=== PATIENT | female | born 1975 | race Caucasian/White ===

== ENCOUNTER 2019-08-04 13:30 | Inpatient (IN) | payer BC, OTHER ==
[~2019-08-04] VITALS: Ht 167.6 cm; Wt 106.7 kg
[2019-08-04 14:07] LABS: BASOPHILS # (AUTO) 0.05 x10^3/uL (0-0.1); BASOPHILS % (AUTO) 0 % (0-1); EOSINOPHILS # (AUTO) 0.34 x10^3/uL (0-0.4); EOSINOPHILS % (AUTO) 2 % (1-7); LYMPHOCYTES # (AUTO) 3.12 x10^3/uL (1-3.4); LYMPHOCYTES % (AUTO) 22 % (22-44); MD NO; MEAN CORPUSCULAR HEMOGLOBIN 27.7 pg (27.0-34.8); MEAN CORPUSCULAR HGB CONC 33.2 g/dL (32.4-35.8); MEAN CORPUSCULAR VOLUME 83.5 fL (80-100); MEAN PLATELET VOLUME 6.9 fL (7.4-10.4); MONOCYTES # (AUTO) 0.84 x10^3/uL (0.2-0.8); MONOCYTES % (AUTO) 6 % (2-9); NEUTROPHILS # (AUTO) 9.95 x10^3/uL (1.8-6.8); NEUTROPHILS % (AUTO) 70 % (42-75); PLATELET COUNT 475 x10^3/uL (130-400); RED BLOOD COUNT 5.11 x10^6/uL (3.82-5.3)
[2019-08-04 14:15] LABS: ALANINE AMINOTRANSFERASE 58 U/L (12-78); ALBUMIN 4.1 g/dL (3.4-5.0); ANION GAP 4 mmol/L (5-15); CALCIUM 9.2 mg/dL (8.5-10.1); CHLORIDE 105 mmol/L (98-107); CREATININE 1.02 mg/dL (0.55-1.02)
[2019-08-04 14:19] LABS: ALKALINE PHOSPHATASE 96 U/L (45-117); BILIRUBIN,TOTAL 0.4 mg/dL (0.2-1.0); TOTAL PROTEIN 8.9 g/dL (6.4-8.2)
--- NOTE | 2019-08-04 16:33 | NUR ---
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 PT WITH FRIEND. NADN. THAKKAR. PT EDUCATED REGARDING WAITING IN LOBBY AT THIS TIME. PT VERBALIZED UNDERSTANDING.
--- NOTE | 2019-08-04 19:14 | NUR ---
PT WALKED TO ROOM FROM LOBBY AT THIS TIME
[2019-08-04] MEDS ORDERED: OMEP-110 PO (19:32)
--- NOTE | 2019-08-04 19:32 | NUR ---
PT C/O SHARP ALL OVER ABD PAIN, STARTING YESTERDAY ABOUT 1200. HX STOMACH PROBLEMS, RECENT CONSTIPATION. CONNECTED TO MONITORING. CALL LIGHT IN REACH. UA COLLECTED AND SENT TO LAB.
[2019-08-04 19:39] LABS: MICROSCOPIC NOT IND
[2019-08-04 19:40] LABS: CULTURE INDICATED? NO
[2019-08-04] MEDS ORDERED: OMNIPAQUE 350 MG/ML, 100ML BOTTLE ONE (20:20)
[2019-08-04] MEDS ORDERED: SODIUM CHLORIDE FLUSH 10ML SYR IVF ONE (20:30)
[2019-08-04] MEDS ORDERED: MORPHINE SULFATE 4 MG/ML, 1ML IVPush PRN (20:30)
[2019-08-04] MEDS ORDERED: ONDANSETRON 2MG/ML, 2ML IVPush ONE (20:30)
[2019-08-04] MEDS ORDERED: ONDANSETRON 2MG/ML, 2ML ONE ×2 (20:50→23:25)
[2019-08-04] MEDS ORDERED: MORPHINE SULFATE 4 MG/ML, 1ML ONE (20:51)
--- NOTE | 2019-08-04 21:18 | NUR ---
IV START. PAIN MEDS ADMIN PER AUG. DAUGHTER AT BEDSIDE.
--- NOTE | 2019-08-04 21:29 | NUR ---
PT AT CT
--- NOTE | 2019-08-04 22:10 | NUR ---
REPORT GIVEN TO OR
[2019-08-04] MEDS ORDERED: CEFOTETAN PMX 1GM/50ML 50 ML ONE (22:12)
--- NOTE | 2019-08-04 22:16 | NUR ---
ABX ADMIN PER MAR
[2019-08-04] MEDS ORDERED: BUPIVACAINE/PF 0.5% ONE (22:20)
[2019-08-04] MEDS ORDERED: EPINEPHRINE 1 MG/ML, 1ML ONE (22:20)
[2019-08-04] MEDS ORDERED: CEFOTETAN PMX 1GM/50ML 50 ML IV ONE (22:30)
[2019-08-04] MEDS ORDERED: BUPIVACAINE/PF-EPI 0.5% 1:200K IM ONE (22:42)
[2019-08-04] MEDS ORDERED: FENTANYL PF 250 MCG/5ML ONE (22:47)
[2019-08-04] MEDS ORDERED: LIDOCAINE GEL 2%, 5ML ONE (22:48)
[2019-08-04] MEDS ORDERED: KETOROLAC 30 MG/1 ML ONE (22:50)
[2019-08-04] MEDS ORDERED: SUCCINYLCHOLINE 20 MG/ML, 10ML ONE (23:25)
[2019-08-04] MEDS ORDERED: CEFAZOLIN 1,000 MG ONE (23:25)
[2019-08-04] MEDS ORDERED: ROCURONIUM 10MG/ML,5ML ONE (23:25)
[2019-08-04] MEDS ORDERED: GLYCOPYRROLATE 0.2MG/1ML, 5ML ONE (23:25)
[2019-08-04] MEDS ORDERED: PROPOFOL 10 MG/ML, 20ML ONE (23:25)
[2019-08-04] MEDS ORDERED: DEXAMETHASONE 4 MG/ML, 1ML ONE (23:25)
[2019-08-04] MEDS ORDERED: NEOSTIGMINE 1 MG/ML, 10ML ONE (23:25)
[2019-08-04] MEDS ORDERED: D5%-0.45NACL+KCL 20MEQ 1,000 ML IV SCH (23:45)
[2019-08-04] MEDS ORDERED: OXYcodone 5 MG/5 ML ORAL.SOL UDC ONE (23:54)
[2019-08-04] MEDS ORDERED: HYDROmorphone 1 MG/ML, 1ML INJ ONE (23:54)
[2019-08-04] MEDS ORDERED: PROMETHAZINE 25 MG/ML, 1ML ONE (23:55)
[2019-08-05] MEDS ORDERED: HYDROmorphone 2 MG/ML, 1ML IVPush PRN
[2019-08-05] MEDS ORDERED: DIPHENHYDRAMINE 25 MG CAPSULE PO PRN
[2019-08-05] MEDS ORDERED: hydrALAzine 20 MG/ML, 1ML IV PRN
[2019-08-05] MEDS ORDERED: MEPERIDINE/PF 25MG/ML,1ML IVPush PRN
[2019-08-05] MEDS ORDERED: FENTANYL PF 100 MCG/2ML IV PRN
[2019-08-05] MEDS ORDERED: OXYcodone 5 MG/5 ML ORAL.SOL UDC PO PRN
[2019-08-05] MEDS ORDERED: ENOXAPARIN 40 MG/0.4 ML SQ SCH
[2019-08-05] MEDS ORDERED: KETOROLAC 30 MG/1 ML IV PRN
[2019-08-05] MEDS ORDERED: HALOPERIDOL 5 MG/ML IV PRN
[2019-08-05] MEDS ORDERED: PROMETHAZINE 25 MG/ML, 1ML IV PRN
[2019-08-05] MEDS ORDERED: LABETALOL 5MG/ML, 20ML IV PRN
[2019-08-05] MEDS ORDERED: MORPHINE SULFATE 4 MG/ML, 1ML IVPush PRN
[2019-08-05] MEDS ORDERED: ACETAMINOPHEN 650 MG/20.3 ML UDC PO PRN
[2019-08-05] MEDS ORDERED: ONDANSETRON 2MG/ML, 2ML IVPush PRN
[2019-08-05] MEDS: HYDROcodone/APAP 5/325 TABLET PO PRN ×3 (06:14→11:02)
[2019-08-05 07:16] VITALS: BP 105/64
[2019-08-05] MEDS ORDERED: HYDR-36 PO (11:04)
[2019-08-05] MEDS ORDERED: ONDA4TAB7 PO (11:05)
[2019-08-05 12:59] VITALS: BP 114/71
== END 2019-08-05 13:40 | disposition home or self-care (01) | DRG 343 ==
LOC: OR 22:10 → EDIP 23:02 → 4NE 23:26
PROVIDERS: ADMIT Surgery; ATTEND Surgery
PROC: 0DTJ4ZZ Resection of Appendix, Percutaneous Endoscopic Approach (ICD-10-PCS; principal; 2019-08-04 22:45)
DX: K35.30 Acute appendicitis with localized peritonitis, without perforation or gangrene (principal); K76.0 Fatty (change of) liver, not elsewhere classified; E66.9 Obesity, unspecified; Z68.38 Body mass index [BMI] 38.0-38.9, adult; K42.9 Umbilical hernia without obstruction or gangrene
CPT/HCPCS: 36415; S0020; 74177; 76700; 80053; 81003; 83690; 84703; 85025; 88304; 93970; G0378; J0171; J0690; J1100; J1170; J1650; J1885; J2405; J2550; J2704; J2710; J3010; Q9967; J0330; J2270; J3480; J3490